=== PATIENT | male | born 1940 | race Caucasian/White ===

== ENCOUNTER 2021-07-01 10:54 | Emergency (ER) | payer BC ==
[2021-07-01] MEDS ORDERED: methylPREDNISolone Sod Succ/PF 125 MG/2 ML VIAL ONE ×2 (11:42→11:59)
[2021-07-01 11:48] LABS: Actual Bicarbonate (HCO3v) 22 mEq/L (22-28); Base Excess -2.6 mEq/L (-2.0 to +3.0); Calcium, Ionized (venous) 1.13 mmol/L (1.16-1.32); Chloride (VBG) 103 mmol/L (98-106); Potassium (VBG) 4.41 mmol/L (3.70-5.30); Puncture Site Other Site; Sodium 137.3 mmol/L (133-146); pH (venous) 7.38 (7.32-7.43)
[2021-07-01 11:53] LABS: #Basophils 0.1 10x3/uL (0.0-0.2); #Monocytes 0.9 10x3/uL (0.0-1.1); #Neutrophils 8.3 10x3/uL (1.5-8.4); %Basophils 0.5 % (0.0-2.0); %Eosinophils 0.3 % (0.0-6.0); %Lymphocytes 8.9 % (18.0-47.0); %Monocytes 8.9 % (0.0-10.0); %Neutrophils 81.1 % (40.0-75.0); Hemoglobin 16.9 g/dL (13.5-17.5); Mean Corpuscular HGB CONC 31.9 g/dL (32.0-36.0); Mean Corpuscular Hemoglobin 29.6 pg (27.0-33.0); Mean Corpuscular Volume 92.6 fl (81.2-95.1); Mean Platelet Volume 9.8 fl (7.4-10.4); Platelet Count 211 10x3/uL (150-450); RBC Distribution Width 15.7 % (11.5-14.5); Red Blood Cell (RBC) Count 5.71 10x6/uL (4.32-5.72); White Blood Cell (WBC) Count 10.3 10x3/uL (3.5-10.5)
[2021-07-01 12:08] LABS: ALT (SGPT) 29 U/L (8-55); AST (SGOT) 100 U/L (5-34); Alkaline Phosphatase 91 U/L (40-110); Anion Gap 19 mmol/L (10-20); BUN (Urea Nitrogen) 23 mg/dL (8.4-25.7); Bilirubin, Total 1.2 mg/dL (0.2-1.2); Calc. Creatinine Clearance 0 mL/min (70-130); Calcium 9.6 mg/dL (7.8-10.44); Carbon Dioxide 22 mmol/L (23-31); Chloride 105 mmol/L (98-107); Globulin 2.8 g/dL (2.4-3.5); Glucose 95 mg/dL (83-110); Potassium 4.5 mmol/L (3.5-5.1); Protein, Total 6.8 g/dL (5.8-8.1); Sodium 141 mmol/L (136-145)
[2021-07-01 12:38] LABS: Bilirubin Neg (Negative); Blood, Urine Negative (Negative); Clarity Clear (Clear); Glucose, Urine (Dipstick) Normal (Negative); Ketone, Urine 15 mg/dL (Negative); Leukocyte Negative (Negative); Nitrite Positive (Negative); Protein, Urine (Dipstick) 15 mg/dl (Neg-Trace); Specific Gravity, Urine 1.015 (1.002-1.036); Urobilinogen Normal mg/dL (Less than 2)
[2021-07-01 12:48] LABS: Bacteria/HPF 1+ HPF (None Seen); Mucous/LPF 2+ LPF (<2+); RBC/HPF 0-3 HPF (0-3); Squamous Epithelial 0-3 HPF (0-3); WBC/HPF 0-3 HPF (0-3)
== END 2021-07-01 13:35 | disposition home or self-care (01) ==
LOC: CSHERS 10:54
DX: J44.1 Chronic obstructive pulmonary disease with (acute) exacerbation (principal); N39.0 Urinary tract infection, site not specified
CPT/HCPCS: 36415; 51702; 71045; 80053; 81003; 81015; 82805; 83880; 84484; 85025; 93005; 94640; 94760; 96374; J2930; J7620

== ENCOUNTER 2021-09-01 07:24 | Emergency (ER) | payer BC ==
[2021-09-01 08:15] LABS: #Basophils 0.1 10x3/uL (0.0-0.2); #Monocytes 0.8 10x3/uL (0.0-1.1); #Neutrophils 11.5 10x3/uL (1.5-8.4); %Basophils 0.4 % (0.0-2.0); %Eosinophils 0.3 % (0.0-6.0); %Lymphocytes 6.6 % (18.0-47.0); %Monocytes 5.9 % (0.0-10.0); %Neutrophils 86.4 % (40.0-75.0); Hemoglobin 15.8 g/dL (13.5-17.5); Mean Corpuscular HGB CONC 33.1 g/dL (32.0-36.0); Mean Corpuscular Hemoglobin 29.4 pg (27.0-33.0); Mean Corpuscular Volume 88.8 fl (81.2-95.1); Mean Platelet Volume 9.9 fl (7.4-10.4); Platelet Count 202 10x3/uL (150-450); RBC Distribution Width 16.6 % (11.5-14.5); Red Blood Cell (RBC) Count 5.38 10x6/uL (4.32-5.72); White Blood Cell (WBC) Count 13.3 10x3/uL (3.5-10.5)
[2021-09-01 08:29] LABS: ALT (SGPT) 11 U/L (8-55); AST (SGOT) 18 U/L (5-34); Alkaline Phosphatase 74 U/L (40-110); Anion Gap 16 mmol/L (10-20); BUN (Urea Nitrogen) 17 mg/dL (8.4-25.7); Bilirubin, Total 0.8 mg/dL (0.2-1.2); Calc. Creatinine Clearance 0 mL/min (70-130); Calcium 9.3 mg/dL (7.8-10.44); Carbon Dioxide 25 mmol/L (23-31); Chloride 106 mmol/L (98-107); Globulin 2.9 g/dL (2.4-3.5); Glucose 112 mg/dL (83-110); Protein, Total 6.9 g/dL (5.8-8.1); Sodium 143 mmol/L (136-145)
[2021-09-01 08:58] LABS: Bilirubin Neg (Negative); Blood, Urine 250 (Negative); Clarity Cloudy (Clear); Glucose, Urine (Dipstick) Normal (Negative); Ketone, Urine 5 mg/dL (Negative); Leukocyte 500 (Negative); Nitrite Negative (Negative); Protein, Urine (Dipstick) 100 mg/dl (Neg-Trace); Urobilinogen Normal mg/dL (Less than 2)
[2021-09-01 09:13] LABS: Bacteria/HPF 3+ HPF (None Seen); Squamous Epithelial 0-3 HPF (0-3); WBC/HPF Greater Than 50 HPF (0-3)
== END 2021-09-01 10:16 | disposition home or self-care (01) ==
LOC: CSHERS 07:24
DX: R33.9 Retention of urine, unspecified (principal); R31.9 Hematuria, unspecified; J44.9 Chronic obstructive pulmonary disease, unspecified; G47.30 Sleep apnea, unspecified
CPT/HCPCS: 51702; 80053; 81003; 81015; 85025; 87077; 87086; 87186

== ENCOUNTER 2023-04-28 15:23 | Inpatient (IN) | payer MEDICARE, BC ==
[2023-04-28] MEDS ORDERED: methylPREDNISolone Sod Succ/PF 125 MG/2 ML VIAL ONE (15:50)
[2023-04-28] MEDS ORDERED: Ipratropium/Albuterol 3 ML NEB ONE (16:19)
[2023-04-28 16:24] LABS: ALT (SGPT) 18 U/L (8-55); AST (SGOT) 27 U/L (5-34); Albumin 3.8 g/dL (3.4-4.8); Alkaline Phosphatase 69 U/L (40-110); Anion Gap 14 mmol/L (10-20); BUN (Urea Nitrogen) 36 mg/dL (8.4-25.7); Bilirubin, Total 0.8 mg/dL (0.2-1.2); Calc. Creatinine Clearance 0 mL/min (70-130); Calcium 8.8 mg/dL (7.8-10.44); Carbon Dioxide 35 mmol/L (23-31); Chloride 102 mmol/L (98-107); Estimated GFR 85; Globulin 2.6 g/dL (2.4-3.5); Glucose 100 mg/dL (83-110); Potassium 4.6 mmol/L (3.5-5.1); Protein, Total 6.4 g/dL (5.8-8.1); Sodium 146 mmol/L (136-145)
[2023-04-28 16:30] LABS: Troponin I 0.048 ng/mL (< 0.028)
[2023-04-28 16:41] LABS: Influenza A by NAA Not Detected (NotDetected); Influenza B by NAA Not Detected (NotDetected); SARS-CoV-2 NAA Rapid Test Not Detected (NotDetected)
[2023-04-28] MEDS ORDERED: Albuterol 2.5 MG (0.5 mL) NEB ONE (17:20)
[2023-04-28 17:37] LABS: #Monocytes 0.5 10x3/uL (0.0-1.1); #Neutrophils 7.8 10x3/uL (1.5-8.4); %Basophils 0.2 % (0.0-2.0); %Eosinophils 0.1 % (0.0-6.0); %Lymphocytes 6.9 % (18.0-47.0); %Monocytes 5.6 % (0.0-10.0); %Neutrophils 86.9 % (40.0-75.0); Hematocrit 50.8 % (38.8-50.0); Hemoglobin 15.3 g/dL (13.5-17.5); Mean Corpuscular HGB CONC 30.1 g/dL (32.0-36.0); Mean Corpuscular Hemoglobin 29.7 pg (27.0-33.0); Mean Corpuscular Volume 98.4 fl (81.2-95.1); Mean Platelet Volume 10.7 fl (7.4-10.4); Platelet Count 141 10x3/uL (150-450); RBC Distribution Width 16.1 % (11.5-14.5); Red Blood Cell (RBC) Count 5.16 10x6/uL (4.32-5.72)
[2023-04-28] MEDS ORDERED: Acetaminophen 650 MG Suppository PR PRN (18:05)
[2023-04-28] MEDS ORDERED: Ondansetron ODT 4 MG TAB PO PRN (18:05)
[2023-04-28] MEDS ORDERED: Ondansetron PF 4 MG/2 ML Vial IVP PRN (18:05)
[2023-04-28] MEDS ORDERED: Albuterol 2.5 MG (3 mL) NEB EZPAP PRN (18:09)
[2023-04-28] MEDS: Ipratropium/Albuterol 3 ML NEB NEB SCH (19:46)
[2023-04-28] MEDS: Mometasone/Formoterol 200/5 60 PUFF INH SCH (19:47)
[2023-04-28] MEDS: Sodium Chloride 0.9% 500 ML IV SCH (20:15)
[2023-04-28] MEDS: Rosuvastatin 20 MG TAB PO SCH (20:32)
[2023-04-28] MEDS: Azithromycin 500 MG in Sodium Chloride 0.9% 250 ML 250 ML IVPB SCH (20:32)
[2023-04-28] MEDS: Famotidine 20 MG TAB PO SCH (20:32)
[2023-04-28] MEDS: guaiFENesin ER 600 MG TAB PO SCH (20:32)
[2023-04-28] MEDS: cefTRIAXone\\ROCEPHIN 1 GM in Sodium Chloride 0.9% 100 ML IVPB SCH (20:32)
[2023-04-29] MEDS: methylPREDNISolone Sod Succ 40 MG VIAL IVP SCH (00:22)
[2023-04-29 00:34] LABS: Troponin I 0.046 ng/mL (< 0.028)
[2023-04-29 04:44] LABS: Anion Gap 12 mmol/L (10-20); BUN (Urea Nitrogen) 35 mg/dL (8.4-25.7); Calc. Creatinine Clearance 85 mL/min (70-130); Calcium 8.7 mg/dL (7.8-10.44); Carbon Dioxide 34 mmol/L (23-31); Chloride 104 mmol/L (98-107); Estimated GFR 89; Glucose 131 mg/dL (83-110); Sodium 145 mmol/L (136-145)
[2023-04-29 05:32] LABS: #Monocytes 0.1 10x3/uL (0.0-1.1); #Neutrophils 7.2 10x3/uL (1.5-8.4); %Basophils 0.1 % (0.0-2.0); %Lymphocytes 2.4 % (18.0-47.0); %Monocytes 1.2 % (0.0-10.0); %Neutrophils 95.9 % (40.0-75.0); Hematocrit 48.3 % (38.8-50.0); Hemoglobin 14.7 g/dL (13.5-17.5); Mean Corpuscular HGB CONC 30.4 g/dL (32.0-36.0); Mean Corpuscular Hemoglobin 29.7 pg (27.0-33.0); Mean Corpuscular Volume 97.6 fl (81.2-95.1); Platelet Count 135 10x3/uL (150-450); RBC Distribution Width 16.1 % (11.5-14.5); Red Blood Cell (RBC) Count 4.95 10x6/uL (4.32-5.72); White Blood Cell (WBC) Count 7.5 10x3/uL (3.5-10.5)
[2023-04-29 07:55] LABS: Troponin I 0.039 ng/mL (< 0.028)
[2023-04-29] MEDS: Furosemide 40 MG (4 mL) VIAL SLOW IVP SCH ×2 (09:24→14:30)
[2023-04-29] MEDS: Enoxaparin 40 MG (0.4 mL) SYRINGE SC SCH (09:24)
[2023-04-29] MEDS: dilTIAZem CD 180 MG CAP PO SCH (11:44)
[2023-04-29 12:55] LABS: Magnesium 1.8 mg/dL (1.6-2.6)
[2023-04-30 03:51] LABS: #Monocytes 0.3 10x3/uL (0.0-1.1); #Neutrophils 8.4 10x3/uL (1.5-8.4); %Basophils 0.1 % (0.0-2.0); %Lymphocytes 4.8 % (18.0-47.0); %Monocytes 3.7 % (0.0-10.0); %Neutrophils 90.9 % (40.0-75.0); Hematocrit 46.9 % (38.8-50.0); Hemoglobin 14.6 g/dL (13.5-17.5); Mean Corpuscular HGB CONC 31.1 g/dL (32.0-36.0); Mean Corpuscular Hemoglobin 29.6 pg (27.0-33.0); Mean Corpuscular Volume 94.9 fl (81.2-95.1); Mean Platelet Volume 11.1 fl (7.4-10.4); Platelet Count 140 10x3/uL (150-450); Red Blood Cell (RBC) Count 4.94 10x6/uL (4.32-5.72); White Blood Cell (WBC) Count 9.2 10x3/uL (3.5-10.5)
[2023-04-30 03:54] LABS: Anion Gap 14 mmol/L (10-20); BUN (Urea Nitrogen) 45 mg/dL (8.4-25.7); Calc. Creatinine Clearance 71 mL/min (70-130); Calcium 8.9 mg/dL (7.8-10.44); Carbon Dioxide 35 mmol/L (23-31); Chloride 99 mmol/L (98-107); Estimated GFR 79; Glucose 108 mg/dL (83-110); Potassium 4.8 mmol/L (3.5-5.1); Sodium 143 mmol/L (136-145)
[2023-04-30] MEDS: Budesonide 0.5 MG/2 ML NEB INH SCH (06:45)
[2023-04-30] MEDS: dilTIAZem CD 180 MG CAP PO SCH (08:50)
[2023-05-01] MEDS: Metoprolol Tartrate 5 MG (5 mL) VIAL IVP PRN (08:38)
[2023-05-01] MEDS: Magnesium 2 GM/50 ML(in water) 2 GM in Premix 1 BAG IVPB SCH (10:26)
[2023-05-01] MEDS: Azithromycin 500 MG in Sodium Chloride 0.9% 250 ML 250 ML IVPB SCH (20:58)
[2023-05-02 04:27] LABS: BUN (Urea Nitrogen) 64 mg/dL (8.4-25.7); Calc. Creatinine Clearance 70 mL/min (70-130); Calcium 8.9 mg/dL (7.8-10.44); Estimated GFR 79; Glucose 127 mg/dL (83-110); Magnesium 2.1 mg/dL (1.6-2.6)
[2023-05-02 04:40] LABS: Anion Gap 17 mmol/L (10-20); Carbon Dioxide 36 mmol/L (23-31); Chloride 97 mmol/L (98-107); Potassium 4.7 mmol/L (3.5-5.1); Sodium 145 mmol/L (136-145)
[2023-05-02] MEDS: Metoprolol Tartrate 25 MG TAB PO SCH ×2 (13:21→20:36)
[2023-05-02] MEDS: methylPREDNISolone Sod Succ 40 MG VIAL IVP SCH (13:21)
[2023-05-04 03:47] LABS: #Monocytes 0.5 10x3/uL (0.0-1.1); #Neutrophils 9.9 10x3/uL (1.5-8.4); %Basophils 0.1 % (0.0-2.0); %Lymphocytes 2.4 % (18.0-47.0); %Monocytes 4.7 % (0.0-10.0); %Neutrophils 92.4 % (40.0-75.0); Hematocrit 57.2 % (38.8-50.0); Hemoglobin 17.4 g/dL (13.5-17.5); Mean Corpuscular HGB CONC 30.4 g/dL (32.0-36.0); Mean Corpuscular Hemoglobin 29.5 pg (27.0-33.0); Mean Corpuscular Volume 97.1 fl (81.2-95.1); Platelet Count 76 10x3/uL (150-450); RBC Distribution Width 15.9 % (11.5-14.5); Red Blood Cell (RBC) Count 5.89 10x6/uL (4.32-5.72); White Blood Cell (WBC) Count 10.7 10x3/uL (3.5-10.5)
[2023-05-04 04:05] LABS: Platelet Adequacy Comment Appears Decreased; RBC Morph Comment Within Normal Limits
[2023-05-04 04:29] LABS: BUN (Urea Nitrogen) 55 mg/dL (8.4-25.7); Calc. Creatinine Clearance 81 mL/min (70-130); Calcium 8.9 mg/dL (7.8-10.44); Estimated GFR 87; Glucose 116 mg/dL (83-110)
[2023-05-04 04:37] LABS: Anion Gap 17 mmol/L (10-20); Carbon Dioxide 33 mmol/L (23-31); Chloride 96 mmol/L (98-107); Potassium 4.3 mmol/L (3.5-5.1); Sodium 142 mmol/L (136-145)
[2023-05-04] MEDS: Apixaban 5 MG TAB PO SCH (20:28)
[2023-05-05 03:12] LABS: Hematocrit 52.5 % (38.8-50.0); Hemoglobin 16.2 g/dL (13.5-17.5); Mean Corpuscular HGB CONC 30.9 g/dL (32.0-36.0); Mean Corpuscular Hemoglobin 29.6 pg (27.0-33.0); Mean Corpuscular Volume 95.8 fl (81.2-95.1); Mean Platelet Volume 11.9 fl (7.4-10.4); Platelet Count 71 10x3/uL (150-450); RBC Distribution Width 15.4 % (11.5-14.5); Red Blood Cell (RBC) Count 5.48 10x6/uL (4.32-5.72); White Blood Cell (WBC) Count 12.4 10x3/uL (3.5-10.5)
[2023-05-05 03:13] LABS: MDiff Complete? YES
[2023-05-05 03:35] LABS: Band 9 % (5-11); Lymphocytes 4 % (21-51); Monocytes 5 % (0-10); Neutrophil 82 % (42-75)
[2023-05-05 03:38] LABS: RBC Morph Comment Within Normal Limits
[2023-05-05 03:39] LABS: Platelet Adequacy Comment Appears Decreased
[2023-05-05 03:42] LABS: Anion Gap 13 mmol/L (10-20); BUN (Urea Nitrogen) 52 mg/dL (8.4-25.7); Calc. Creatinine Clearance 86 mL/min (70-130); Calcium 8.6 mg/dL (7.8-10.44); Carbon Dioxide 36 mmol/L (23-31); Chloride 99 mmol/L (98-107); Estimated GFR 89; Glucose 131 mg/dL (83-110); Potassium 4.6 mmol/L (3.5-5.1); Sodium 143 mmol/L (136-145)
[2023-05-05] MEDS: methylPREDNISolone Sod Succ 40 MG VIAL IVP SCH (13:27)
[2023-05-05] MEDS: Apixaban 2.5 MG TAB PO SCH (20:50)
[2023-05-06 03:17] LABS: #Monocytes 0.8 10x3/uL (0.0-1.1); #Neutrophils 13.7 10x3/uL (1.5-8.4); %Basophils 0.2 % (0.0-2.0); %Lymphocytes 2.7 % (18.0-47.0); %Monocytes 5.1 % (0.0-10.0); %Neutrophils 91.7 % (40.0-75.0); Hematocrit 55.2 % (38.8-50.0); Hemoglobin 16.8 g/dL (13.5-17.5); Mean Corpuscular HGB CONC 30.4 g/dL (32.0-36.0); Mean Corpuscular Hemoglobin 29.9 pg (27.0-33.0); Mean Corpuscular Volume 98.4 fl (81.2-95.1); Platelet Count 74 10x3/uL (150-450); RBC Distribution Width 15.3 % (11.5-14.5); Red Blood Cell (RBC) Count 5.61 10x6/uL (4.32-5.72)
[2023-05-06 03:18] LABS: Mean Platelet Volume 11.4 fl (7.4-10.4)
[2023-05-06 03:22] LABS: INR-International Normal Ratio 1.2; PTT 26.8 sec (22.0-33.0); Prothrombin Time 12.9 sec (9.5-12.1)
[2023-05-06 03:44] LABS: ALT (SGPT) 172 U/L (8-55); AST (SGOT) 59 U/L (5-34); Albumin 3.6 g/dL (3.4-4.8); Alkaline Phosphatase 52 U/L (40-110); BUN (Urea Nitrogen) 54 mg/dL (8.4-25.7); Bilirubin, Direct 0.4 mg/dL (0.1-0.3); Bilirubin, Total 0.8 mg/dL (0.2-1.2); Calc. Creatinine Clearance 66 mL/min (70-130); Calcium 8.9 mg/dL (7.8-10.44); Estimated GFR 72; Glucose 119 mg/dL (83-110); Protein, Total 5.8 g/dL (5.8-8.1)
[2023-05-06 03:51] LABS: Anion Gap 14 mmol/L (10-20); Carbon Dioxide 36 mmol/L (23-31); Chloride 99 mmol/L (98-107); Potassium 5.2 mmol/L (3.5-5.1); Sodium 144 mmol/L (136-145)
[2023-05-06] MEDS: Folic Acid 1 MG TAB PO SCH (10:05)
[2023-05-06 12:31] LABS: Potassium 4.4 mmol/L (3.5-5.1)
[2023-05-06] MEDS ORDERED: Diclofenac 1% 100 GM Topical GEL TP SCH (17:00)
[2023-05-06] MEDS: Diclofenac 1% 50 GM TOPICAL GEL TP SCH ×2 (18:52→21:31)
[2023-05-06] MEDS: Metoprolol Tartrate 25 MG TAB PO SCH (21:30)
[2023-05-07 03:00] LABS: #Monocytes 0.9 10x3/uL (0.0-1.1); #Neutrophils 16.5 10x3/uL (1.5-8.4); %Basophils 0.1 % (0.0-2.0); %Lymphocytes 2.2 % (18.0-47.0); %Monocytes 5.1 % (0.0-10.0); %Neutrophils 91.9 % (40.0-75.0); Hematocrit 53.8 % (38.8-50.0); Hemoglobin 16.4 g/dL (13.5-17.5); Mean Corpuscular HGB CONC 30.5 g/dL (32.0-36.0); Mean Corpuscular Hemoglobin 29.8 pg (27.0-33.0); Mean Corpuscular Volume 97.8 fl (81.2-95.1); Mean Platelet Volume 11.6 fl (7.4-10.4); Platelet Count 77 10x3/uL (150-450); RBC Distribution Width 15.2 % (11.5-14.5); White Blood Cell (WBC) Count 17.9 10x3/uL (3.5-10.5)
[2023-05-07 03:12] LABS: Anion Gap 14 mmol/L (10-20); BUN (Urea Nitrogen) 53 mg/dL (8.4-25.7); Calc. Creatinine Clearance 85 mL/min (70-130); Calcium 8.9 mg/dL (7.8-10.44); Carbon Dioxide 37 mmol/L (23-31); Chloride 99 mmol/L (98-107); Estimated GFR 88; Glucose 140 mg/dL (83-110); Potassium 5.5 mmol/L (3.5-5.1); Sodium 144 mmol/L (136-145)
[2023-05-07 03:33] LABS: ALT (SGPT) 180 U/L (8-55); AST (SGOT) 60 U/L (5-34); Albumin 3.5 g/dL (3.4-4.8); Alkaline Phosphatase 55 U/L (40-110); Bilirubin, Direct 0.3 mg/dL (0.1-0.3); Bilirubin, Total 0.8 mg/dL (0.2-1.2); Protein, Total 5.6 g/dL (5.8-8.1)
[2023-05-07] MEDS: predniSONE 20 MG TAB PO SCH (09:09)
[2023-05-07] MEDS: Acetaminophen 325 MG TAB PO PRN (11:24)
[2023-05-07 13:08] LABS: Potassium 4.6 mmol/L (3.5-5.1)
[2023-05-07] MEDS: Rosuvastatin 10 MG TAB PO SCH (20:39)
[2023-05-08 04:03] LABS: #Monocytes 2.1 10x3/uL (0.0-1.1); #Neutrophils 17.6 10x3/uL (1.5-8.4); %Basophils 0.2 % (0.0-2.0); %Lymphocytes 2.5 % (18.0-47.0); %Monocytes 10.4 % (0.0-10.0); %Neutrophils 86.4 % (40.0-75.0); Hematocrit 53.5 % (38.8-50.0); Hemoglobin 16.1 g/dL (13.5-17.5); Mean Corpuscular HGB CONC 30.1 g/dL (32.0-36.0); Mean Corpuscular Hemoglobin 29.5 pg (27.0-33.0); Mean Corpuscular Volume 98.2 fl (81.2-95.1); Platelet Count 84 10x3/uL (150-450); RBC Distribution Width 15.1 % (11.5-14.5); Red Blood Cell (RBC) Count 5.45 10x6/uL (4.32-5.72); White Blood Cell (WBC) Count 20.3 10x3/uL (3.5-10.5)
[2023-05-08 04:13] LABS: Anion Gap 13 mmol/L (10-20); BUN (Urea Nitrogen) 57 mg/dL (8.4-25.7); Calc. Creatinine Clearance 80 mL/min (70-130); Carbon Dioxide 37 mmol/L (23-31); Chloride 99 mmol/L (98-107); Potassium 5.4 mmol/L (3.5-5.1); Sodium 144 mmol/L (136-145)
[2023-05-08 04:14] LABS: ALT (SGPT) 194 U/L (8-55); AST (SGOT) 59 U/L (5-34); Albumin 3.4 g/dL (3.4-4.8); Alkaline Phosphatase 53 U/L (40-110); Bilirubin, Direct 0.3 mg/dL (0.1-0.3); Bilirubin, Total 0.8 mg/dL (0.2-1.2); Calcium 8.9 mg/dL (7.8-10.44); Estimated GFR 86; Glucose 96 mg/dL (83-110); Protein, Total 5.6 g/dL (5.8-8.1)
[2023-05-08 04:46] LABS: Platelet Adequacy Comment Appears Decreased
[2023-05-08 04:50] LABS: RBC Morph Comment Within Normal Limits
[2023-05-08 12:44] LABS: Potassium 4.3 mmol/L (3.5-5.1)
[2023-05-09 09:43] LABS: #Eosinphils 0.1 10x3/uL (0.0-0.5); #Monocytes 1.8 10x3/uL (0.0-1.1); #Neutrophils 14.7 10x3/uL (1.5-8.4); %Basophils 0.1 % (0.0-2.0); %Eosinophils 0.3 % (0.0-6.0); %Neutrophils 84.2 % (40.0-75.0); Hematocrit 44.7 % (38.8-50.0); Hemoglobin 13.6 g/dL (13.5-17.5); Mean Corpuscular HGB CONC 30.4 g/dL (32.0-36.0); Mean Corpuscular Hemoglobin 29.8 pg (27.0-33.0); Mean Corpuscular Volume 97.8 fl (81.2-95.1); Mean Platelet Volume 12.4 fl (7.4-10.4); Platelet Count 86 10x3/uL (150-450); Red Blood Cell (RBC) Count 4.57 10x6/uL (4.32-5.72); White Blood Cell (WBC) Count 17.5 10x3/uL (3.5-10.5)
[2023-05-09 10:10] LABS: ALT (SGPT) 157 U/L (8-55); AST (SGOT) 50 U/L (5-34); Albumin 3.1 g/dL (3.4-4.8); Alkaline Phosphatase 47 U/L (40-110); BUN (Urea Nitrogen) 56 mg/dL (8.4-25.7); Calc. Creatinine Clearance 79 mL/min (70-130); Calcium 8.8 mg/dL (7.8-10.44); Estimated GFR 86; Globulin 1.7 g/dL (2.4-3.5); Glucose 95 mg/dL (83-110); Protein, Total 4.8 g/dL (5.8-8.1)
[2023-05-09 10:18] LABS: Anion Gap 14 mmol/L (10-20); Carbon Dioxide 36 mmol/L (23-31); Chloride 98 mmol/L (98-107); Potassium 5.3 mmol/L (3.5-5.1); Sodium 143 mmol/L (136-145)
[2023-05-09] MEDS: LOKELMA 5 GM PACKET PO SCH (11:43)
[2023-05-10 04:12] LABS: #Monocytes 1.6 10x3/uL (0.0-1.1); #Neutrophils 16.7 10x3/uL (1.5-8.4); %Basophils 0.1 % (0.0-2.0); %Eosinophils 0.2 % (0.0-6.0); %Lymphocytes 3.8 % (18.0-47.0); %Monocytes 8.1 % (0.0-10.0); %Neutrophils 87.2 % (40.0-75.0); Hematocrit 43.1 % (38.8-50.0); Mean Corpuscular HGB CONC 30.2 g/dL (32.0-36.0); Mean Corpuscular Hemoglobin 29.3 pg (27.0-33.0); Mean Corpuscular Volume 97.3 fl (81.2-95.1); Mean Platelet Volume 11.9 fl (7.4-10.4); Platelet Count 82 10x3/uL (150-450); RBC Distribution Width 14.9 % (11.5-14.5); Red Blood Cell (RBC) Count 4.43 10x6/uL (4.32-5.72); White Blood Cell (WBC) Count 19.2 10x3/uL (3.5-10.5)
[2023-05-10 04:32] LABS: Platelet Adequacy Comment Appears Decreased; RBC Morph Comment Within Normal Limits
[2023-05-10 09:31] LABS: #Monocytes 1.3 10x3/uL (0.0-1.1); %Basophils 0.1 % (0.0-2.0); %Eosinophils 0.2 % (0.0-6.0); %Lymphocytes 6.2 % (18.0-47.0); %Monocytes 7.4 % (0.0-10.0); %Neutrophils 85.6 % (40.0-75.0); Hematocrit 42.5 % (38.8-50.0); Hemoglobin 12.9 g/dL (13.5-17.5); Mean Corpuscular HGB CONC 30.4 g/dL (32.0-36.0); Mean Corpuscular Hemoglobin 29.6 pg (27.0-33.0); Mean Corpuscular Volume 97.5 fl (81.2-95.1); Platelet Count 95 10x3/uL (150-450); RBC Distribution Width 14.8 % (11.5-14.5); Red Blood Cell (RBC) Count 4.36 10x6/uL (4.32-5.72); White Blood Cell (WBC) Count 17.6 10x3/uL (3.5-10.5)
[2023-05-10 09:44] LABS: ALT (SGPT) 127 U/L (8-55); AST (SGOT) 36 U/L (5-34); Albumin 3.2 g/dL (3.4-4.8); Alkaline Phosphatase 50 U/L (40-110); Anion Gap 14 mmol/L (10-20); BUN (Urea Nitrogen) 56 mg/dL (8.4-25.7); Calc. Creatinine Clearance 80 mL/min (70-130); Calcium 8.7 mg/dL (7.8-10.44); Carbon Dioxide 37 mmol/L (23-31); Chloride 98 mmol/L (98-107); Estimated GFR 85; Globulin 2.1 g/dL (2.4-3.5); Glucose 78 mg/dL (83-110); Protein, Total 5.3 g/dL (5.8-8.1); Sodium 144 mmol/L (136-145)
[2023-05-11 04:24] LABS: #Monocytes 1.2 10x3/uL (0.0-1.1); #Neutrophils 14.1 10x3/uL (1.5-8.4); %Basophils 0.1 % (0.0-2.0); %Eosinophils 0.1 % (0.0-6.0); %Lymphocytes 4.5 % (18.0-47.0); %Monocytes 7.4 % (0.0-10.0); %Neutrophils 87.3 % (40.0-75.0); Hematocrit 36.4 % (38.8-50.0); Hemoglobin 11.2 g/dL (13.5-17.5); Mean Corpuscular HGB CONC 30.8 g/dL (32.0-36.0); Mean Corpuscular Hemoglobin 29.6 pg (27.0-33.0); Mean Platelet Volume 12.1 fl (7.4-10.4); Platelet Count 94 10x3/uL (150-450); RBC Distribution Width 14.9 % (11.5-14.5); Red Blood Cell (RBC) Count 3.79 10x6/uL (4.32-5.72); White Blood Cell (WBC) Count 16.1 10x3/uL (3.5-10.5)
[2023-05-11 04:57] LABS: Platelet Adequacy Comment Appears Decreased; RBC Morph Comment Within Normal Limits
[2023-05-11] MEDS: Furosemide 40 MG (4 mL) VIAL SLOW IVP SCH ×2 (09:10→13:57)
[2023-05-11 09:19] LABS: #Monocytes 1.3 10x3/uL (0.0-1.1); #Neutrophils 14.8 10x3/uL (1.5-8.4); %Basophils 0.1 % (0.0-2.0); %Eosinophils 0.2 % (0.0-6.0); %Lymphocytes 6.4 % (18.0-47.0); %Monocytes 7.7 % (0.0-10.0); %Neutrophils 85.1 % (40.0-75.0); Hematocrit 37.3 % (38.8-50.0); Hemoglobin 11.5 g/dL (13.5-17.5); Mean Corpuscular HGB CONC 30.8 g/dL (32.0-36.0); Mean Corpuscular Hemoglobin 29.7 pg (27.0-33.0); Mean Corpuscular Volume 96.4 fl (81.2-95.1); Platelet Count 101 10x3/uL (150-450); RBC Distribution Width 14.8 % (11.5-14.5); Red Blood Cell (RBC) Count 3.87 10x6/uL (4.32-5.72); White Blood Cell (WBC) Count 17.4 10x3/uL (3.5-10.5)
[2023-05-11] MEDS: dilTIAZem ER 60 MG CAP PO SCH (09:27)
[2023-05-11 09:29] LABS: ALT (SGPT) 99 U/L (8-55); AST (SGOT) 32 U/L (5-34); Albumin 3.2 g/dL (3.4-4.8); Alkaline Phosphatase 45 U/L (40-110); Anion Gap 13 mmol/L (10-20); BUN (Urea Nitrogen) 49 mg/dL (8.4-25.7); Bilirubin, Total 1.3 mg/dL (0.2-1.2); Calc. Creatinine Clearance 94 mL/min (70-130); Calcium 8.5 mg/dL (7.8-10.44); Carbon Dioxide 36 mmol/L (23-31); Chloride 98 mmol/L (98-107); Estimated GFR 90; Glucose 95 mg/dL (83-110); Potassium 4.8 mmol/L (3.5-5.1); Protein, Total 5.2 g/dL (5.8-8.1); Sodium 142 mmol/L (136-145)
[2023-05-11] MEDS: Ipratropium Bromide 2.5 ml Neb NEB SCH (13:42)
[2023-05-12 03:41] LABS: #Monocytes 1.4 10x3/uL (0.0-1.1); #Neutrophils 14.9 10x3/uL (1.5-8.4); %Basophils 0.1 % (0.0-2.0); %Eosinophils 0.1 % (0.0-6.0); %Lymphocytes 5.2 % (18.0-47.0); %Monocytes 8.3 % (0.0-10.0); %Neutrophils 85.7 % (40.0-75.0); Hematocrit 33.7 % (38.8-50.0); Hemoglobin 10.6 g/dL (13.5-17.5); Mean Corpuscular HGB CONC 31.5 g/dL (32.0-36.0); Mean Corpuscular Hemoglobin 29.9 pg (27.0-33.0); Mean Corpuscular Volume 94.9 fl (81.2-95.1); Mean Platelet Volume 12.1 fl (7.4-10.4); Platelet Count 95 10x3/uL (150-450); RBC Distribution Width 14.9 % (11.5-14.5); Red Blood Cell (RBC) Count 3.55 10x6/uL (4.32-5.72); White Blood Cell (WBC) Count 17.3 10x3/uL (3.5-10.5)
[2023-05-12 09:15] LABS: #Monocytes 1.5 10x3/uL (0.0-1.1); #Neutrophils 14.9 10x3/uL (1.5-8.4); %Basophils 0.1 % (0.0-2.0); %Eosinophils 0.2 % (0.0-6.0); %Monocytes 8.4 % (0.0-10.0); %Neutrophils 84.8 % (40.0-75.0); Hematocrit 33.2 % (38.8-50.0); Hemoglobin 10.6 g/dL (13.5-17.5); Mean Corpuscular HGB CONC 31.9 g/dL (32.0-36.0); Mean Corpuscular Hemoglobin 30.4 pg (27.0-33.0); Mean Corpuscular Volume 95.1 fl (81.2-95.1); Mean Platelet Volume 11.7 fl (7.4-10.4); Platelet Count 116 10x3/uL (150-450); RBC Distribution Width 14.9 % (11.5-14.5); Red Blood Cell (RBC) Count 3.49 10x6/uL (4.32-5.72); White Blood Cell (WBC) Count 17.5 10x3/uL (3.5-10.5)
[2023-05-12 09:33] LABS: ALT (SGPT) 78 U/L (8-55); AST (SGOT) 29 U/L (5-34); Albumin 3.1 g/dL (3.4-4.8); Alkaline Phosphatase 48 U/L (40-110); BUN (Urea Nitrogen) 54 mg/dL (8.4-25.7); Bilirubin, Total 1.5 mg/dL (0.2-1.2); Calc. Creatinine Clearance 83 mL/min (70-130); Calcium 8.5 mg/dL (7.8-10.44); Estimated GFR 86; Globulin 1.9 g/dL (2.4-3.5); Glucose 100 mg/dL (83-110)
[2023-05-12 09:42] LABS: Anion Gap 17 mmol/L (10-20); Carbon Dioxide 34 mmol/L (23-31); Chloride 95 mmol/L (98-107); Potassium 4.7 mmol/L (3.5-5.1); Sodium 141 mmol/L (136-145)
[2023-05-12] MEDS: dilTIAZem CD 240 MG CAP PO SCH (10:12)
[2023-05-13 04:34] LABS: #Monocytes 1.4 10x3/uL (0.0-1.1); #Neutrophils 14.4 10x3/uL (1.5-8.4); %Basophils 0.1 % (0.0-2.0); %Eosinophils 0.1 % (0.0-6.0); %Lymphocytes 4.8 % (18.0-47.0); %Monocytes 8.4 % (0.0-10.0); Hematocrit 31.8 % (38.8-50.0); Hemoglobin 9.9 g/dL (13.5-17.5); Mean Corpuscular HGB CONC 31.1 g/dL (32.0-36.0); Mean Corpuscular Hemoglobin 29.7 pg (27.0-33.0); Mean Corpuscular Volume 95.5 fl (81.2-95.1); Mean Platelet Volume 12.7 fl (7.4-10.4); Platelet Count 100 10x3/uL (150-450); RBC Distribution Width 15.1 % (11.5-14.5); Red Blood Cell (RBC) Count 3.33 10x6/uL (4.32-5.72); White Blood Cell (WBC) Count 16.7 10x3/uL (3.5-10.5)
[2023-05-13 09:11] LABS: #Monocytes 1.3 10x3/uL (0.0-1.1); #Neutrophils 14.7 10x3/uL (1.5-8.4); %Basophils 0.1 % (0.0-2.0); %Eosinophils 0.1 % (0.0-6.0); %Lymphocytes 6.5 % (18.0-47.0); %Monocytes 7.5 % (0.0-10.0); %Neutrophils 85.1 % (40.0-75.0); Hematocrit 33.4 % (38.8-50.0); Hemoglobin 10.7 g/dL (13.5-17.5); Mean Corpuscular Hemoglobin 30.1 pg (27.0-33.0); Mean Corpuscular Volume 94.1 fl (81.2-95.1); Mean Platelet Volume 12.2 fl (7.4-10.4); Platelet Count 134 10x3/uL (150-450); RBC Distribution Width 14.9 % (11.5-14.5); Red Blood Cell (RBC) Count 3.55 10x6/uL (4.32-5.72); White Blood Cell (WBC) Count 17.3 10x3/uL (3.5-10.5)
[2023-05-13 09:42] LABS: ALT (SGPT) 76 U/L (8-55); AST (SGOT) 32 U/L (5-34); Albumin 3.5 g/dL (3.4-4.8); Alkaline Phosphatase 55 U/L (40-110); BUN (Urea Nitrogen) 57 mg/dL (8.4-25.7); Bilirubin, Total 1.7 mg/dL (0.2-1.2); Calc. Creatinine Clearance 72 mL/min (70-130); Calcium 8.9 mg/dL (7.8-10.44); Estimated GFR 77; Globulin 2.2 g/dL (2.4-3.5); Glucose 115 mg/dL (83-110); Protein, Total 5.7 g/dL (5.8-8.1)
[2023-05-13 09:50] LABS: Anion Gap 17 mmol/L (10-20); Carbon Dioxide 36 mmol/L (23-31); Chloride 94 mmol/L (98-107); Potassium 4.3 mmol/L (3.5-5.1); Sodium 143 mmol/L (136-145)
[2023-05-14 03:58] LABS: Platelet Count 109 10x3/uL (150-450)
[2023-05-14 03:59] LABS: #Monocytes 1.3 10x3/uL (0.0-1.1); #Neutrophils 13.3 10x3/uL (1.5-8.4); %Basophils 0.1 % (0.0-2.0); %Eosinophils 0.1 % (0.0-6.0); %Lymphocytes 4.3 % (18.0-47.0); %Monocytes 8.3 % (0.0-10.0); %Neutrophils 86.7 % (40.0-75.0); Hematocrit 30.3 % (38.8-50.0); Hemoglobin 9.9 g/dL (13.5-17.5); Mean Corpuscular HGB CONC 32.7 g/dL (32.0-36.0); Mean Corpuscular Hemoglobin 30.9 pg (27.0-33.0); Mean Corpuscular Volume 94.7 fl (81.2-95.1); Mean Platelet Volume 11.9 fl (7.4-10.4); RBC Distribution Width 14.8 % (11.5-14.5); White Blood Cell (WBC) Count 15.3 10x3/uL (3.5-10.5)
[2023-05-14 09:40] LABS: #Monocytes 1.1 10x3/uL (0.0-1.1); #Neutrophils 12.6 10x3/uL (1.5-8.4); %Basophils 0.1 % (0.0-2.0); %Eosinophils 0.1 % (0.0-6.0); %Lymphocytes 7.2 % (18.0-47.0); %Monocytes 7.5 % (0.0-10.0); %Neutrophils 84.6 % (40.0-75.0); Hematocrit 30.9 % (38.8-50.0); Mean Corpuscular HGB CONC 32.4 g/dL (32.0-36.0); Mean Corpuscular Hemoglobin 30.6 pg (27.0-33.0); Mean Corpuscular Volume 94.5 fl (81.2-95.1); Mean Platelet Volume 12.1 fl (7.4-10.4); Platelet Count 115 10x3/uL (150-450); RBC Distribution Width 14.9 % (11.5-14.5); Red Blood Cell (RBC) Count 3.27 10x6/uL (4.32-5.72); White Blood Cell (WBC) Count 14.9 10x3/uL (3.5-10.5)
[2023-05-14 10:06] LABS: ALT (SGPT) 62 U/L (8-55); AST (SGOT) 29 U/L (5-34); Albumin 3.3 g/dL (3.4-4.8); Alkaline Phosphatase 48 U/L (40-110); BUN (Urea Nitrogen) 53 mg/dL (8.4-25.7); Bilirubin, Total 1.6 mg/dL (0.2-1.2); Calc. Creatinine Clearance 85 mL/min (70-130); Calcium 8.4 mg/dL (7.8-10.44); Estimated GFR 89; Globulin 1.9 g/dL (2.4-3.5); Glucose 98 mg/dL (83-110); Protein, Total 5.2 g/dL (5.8-8.1)
[2023-05-14 10:13] LABS: Anion Gap 15 mmol/L (10-20); Carbon Dioxide 36 mmol/L (23-31); Chloride 94 mmol/L (98-107); Potassium 4.3 mmol/L (3.5-5.1); Sodium 141 mmol/L (136-145)
[2023-05-15 08:56] LABS: ALV-art Gradient 179.445 mmHg (0-20); Actual Bicarbonate (HCO3a) 37.1 mEq/L (22-28); Analyzer IN Cardio CS ICU; Base Excess (BEa) 9.3 mEq/L (-2.0 to +3.0); CO2 Tension 66.7 mmHg (35.0-45.0); Calcium, Ionized (arterial) 1.13 mmol/L (1.12-1.30); Carboxyhemoglobin (COHb) 1.9 gm% (0.0-3.0); Hematocrit-ABG 38 % (42.0-52.0); Hemoglobin (Hb) 12.9 g/dL (14.0-18.0); O2 Tension (PaO2), arterial 50.9 mmHg (> 60.0); Potassium - ABG Lab 4.19 mmol/L (3.70-5.30); Puncture Site RRA; pH, Arterial 7.363 (7.35-7.45)
[2023-05-15 08:59] LABS: #Monocytes 1.4 10x3/uL (0.0-1.1); #Neutrophils 14.9 10x3/uL (1.5-8.4); %Basophils 0.1 % (0.0-2.0); %Eosinophils 0.2 % (0.0-6.0); %Lymphocytes 5.5 % (18.0-47.0); %Monocytes 8.1 % (0.0-10.0); %Neutrophils 85.6 % (40.0-75.0); Hematocrit 34.1 % (38.8-50.0); Hemoglobin 10.6 g/dL (13.5-17.5); Mean Corpuscular HGB CONC 31.1 g/dL (32.0-36.0); Mean Corpuscular Hemoglobin 29.8 pg (27.0-33.0); Mean Corpuscular Volume 95.8 fl (81.2-95.1); Mean Platelet Volume 11.1 fl (7.4-10.4); Platelet Count 143 10x3/uL (150-450); Red Blood Cell (RBC) Count 3.56 10x6/uL (4.32-5.72); White Blood Cell (WBC) Count 17.4 10x3/uL (3.5-10.5)
[2023-05-15 09:22] LABS: ALT (SGPT) 59 U/L (8-55); AST (SGOT) 31 U/L (5-34); Albumin 3.4 g/dL (3.4-4.8); Alkaline Phosphatase 53 U/L (40-110); BUN (Urea Nitrogen) 48 mg/dL (8.4-25.7); Bilirubin, Total 1.7 mg/dL (0.2-1.2); Calc. Creatinine Clearance 85 mL/min (70-130); Calcium 8.5 mg/dL (7.8-10.44); Estimated GFR 89; Globulin 2.2 g/dL (2.4-3.5); Glucose 93 mg/dL (83-110); Protein, Total 5.6 g/dL (5.8-8.1)
[2023-05-15 09:30] LABS: Anion Gap 17 mmol/L (10-20); Carbon Dioxide 34 mmol/L (23-31); Chloride 96 mmol/L (98-107); Potassium 4.1 mmol/L (3.5-5.1); Sodium 143 mmol/L (136-145)
[2023-05-16 09:38] LABS: Hematocrit 33.8 % (38.8-50.0); Hemoglobin 10.3 g/dL (13.5-17.5); Mean Corpuscular HGB CONC 30.5 g/dL (32.0-36.0); Mean Corpuscular Hemoglobin 29.3 pg (27.0-33.0); Mean Platelet Volume 11.3 fl (7.4-10.4); Platelet Count 134 10x3/uL (150-450); RBC Distribution Width 15.3 % (11.5-14.5); Red Blood Cell (RBC) Count 3.52 10x6/uL (4.32-5.72); White Blood Cell (WBC) Count 17.6 10x3/uL (3.5-10.5)
[2023-05-16 09:39] LABS: #Monocytes 1.3 10x3/uL (0.0-1.1); #Neutrophils 14.6 10x3/uL (1.5-8.4); %Basophils 0.1 % (0.0-2.0); %Eosinophils 0.2 % (0.0-6.0); %Lymphocytes 5.2 % (18.0-47.0); %Monocytes 7.6 % (0.0-10.0); %Neutrophils 86.1 % (40.0-75.0)
[2023-05-16] MEDS: Furosemide 40 MG (4 mL) VIAL SLOW IVP SCH (09:46)
[2023-05-16 10:08] LABS: ALT (SGPT) 54 U/L (8-55); AST (SGOT) 31 U/L (5-34); Albumin 3.4 g/dL (3.4-4.8); Alkaline Phosphatase 50 U/L (40-110); Anion Gap 15 mmol/L (10-20); BUN (Urea Nitrogen) 50 mg/dL (8.4-25.7); Bilirubin, Total 1.5 mg/dL (0.2-1.2); Calc. Creatinine Clearance 82 mL/min (70-130); Calcium 8.4 mg/dL (7.8-10.44); Carbon Dioxide 36 mmol/L (23-31); Chloride 97 mmol/L (98-107); Estimated GFR 88; Globulin 2.3 g/dL (2.4-3.5); Glucose 84 mg/dL (83-110); Protein, Total 5.7 g/dL (5.8-8.1); Sodium 143 mmol/L (136-145)
[2023-05-17 06:52] VITALS: BMI 25.1
[2023-05-17 09:34] LABS: #Monocytes 1.2 10x3/uL (0.0-1.1); #Neutrophils 15.8 10x3/uL (1.5-8.4); %Basophils 0.1 % (0.0-2.0); %Eosinophils 0.1 % (0.0-6.0); %Lymphocytes 4.2 % (18.0-47.0); %Monocytes 6.5 % (0.0-10.0); %Neutrophils 88.5 % (40.0-75.0); Hematocrit 34.7 % (38.8-50.0); Hemoglobin 10.7 g/dL (13.5-17.5); Mean Corpuscular HGB CONC 30.8 g/dL (32.0-36.0); Mean Corpuscular Hemoglobin 29.8 pg (27.0-33.0); Mean Corpuscular Volume 96.7 fl (81.2-95.1); Mean Platelet Volume 10.8 fl (7.4-10.4); Platelet Count 130 10x3/uL (150-450); RBC Distribution Width 15.5 % (11.5-14.5); Red Blood Cell (RBC) Count 3.59 10x6/uL (4.32-5.72); White Blood Cell (WBC) Count 17.9 10x3/uL (3.5-10.5)
[2023-05-17 09:51] LABS: ALT (SGPT) 52 U/L (8-55); AST (SGOT) 28 U/L (5-34); Albumin 3.6 g/dL (3.4-4.8); Alkaline Phosphatase 54 U/L (40-110); Anion Gap 17 mmol/L (10-20); BUN (Urea Nitrogen) 55 mg/dL (8.4-25.7); Bilirubin, Total 1.9 mg/dL (0.2-1.2); Calc. Creatinine Clearance 78 mL/min (70-130); Calcium 8.8 mg/dL (7.8-10.44); Carbon Dioxide 35 mmol/L (23-31); Chloride 96 mmol/L (98-107); Estimated GFR 86; Globulin 2.4 g/dL (2.4-3.5); Glucose 102 mg/dL (83-110); Potassium 4.6 mmol/L (3.5-5.1); Sodium 143 mmol/L (136-145)
[2023-05-18] MEDS: Furosemide 40 MG (4 mL) VIAL SLOW IVP SCH (13:53)
[2023-05-19] MEDS: Furosemide 40 MG (4 mL) VIAL SLOW IVP SCH (06:24)
[2023-05-19 12:58] VITALS: BP 119/65; TEMP 97.6
[2023-05-20] MEDS ORDERED: Furosemide 40 MG TAB PO SCH (07:30)
== END 2023-05-19 15:38 | disposition home or self-care (01) | DRG 189 ==
LOC: CSHERS 15:23 → CSHIMCU 19:08 → CSHTELE 05-11 18:07
PROVIDERS: ADMIT Internal Medicine; ATTEND Family Medicine
PROC: 4A033R1 Measurement of Arterial Saturation, Peripheral, Percutaneous Approach (ICD-10-PCS; principal; 2023-05-15)
DX: J96.21 Acute and chronic respiratory failure with hypoxia (principal); I21.A1 Myocardial infarction type 2; I50.33 Acute on chronic diastolic (congestive) heart failure; J44.1 Chronic obstructive pulmonary disease with (acute) exacerbation; I48.92 Unspecified atrial flutter; I11.0 Hypertensive heart disease with heart failure; J96.22 Acute and chronic respiratory failure with hypercapnia; Z11.52 Encounter for screening for COVID-19; N40.0 Benign prostatic hyperplasia without lower urinary tract symptoms; Z79.899 Other long term (current) drug therapy; G47.33 Obstructive sleep apnea (adult) (pediatric); Z90.89 Acquired absence of other organs; Z90.49 Acquired absence of other specified parts of digestive tract; Z98.49 Cataract extraction status, unspecified eye; E78.2 Mixed hyperlipidemia; I25.10 Atherosclerotic heart disease of native coronary artery without angina pectoris; M19.90 Unspecified osteoarthritis, unspecified site; Z82.49 Family history of ischemic heart disease and other diseases of the circulatory system; Z87.891 Personal history of nicotine dependence; Z88.0 Allergy status to penicillin; I70.218 Atherosclerosis of native arteries of extremities with intermittent claudication, other extremity; E87.70 Fluid overload, unspecified; I27.20 Pulmonary hypertension, unspecified; I48.0 Paroxysmal atrial fibrillation; D69.6 Thrombocytopenia, unspecified; E87.5 Hyperkalemia; Z66 Do not resuscitate
CPT/HCPCS: 36415; 36416; 36600; 71045; 80048; 80053; 80076; 82805; 83735; 83880; 84484; 85025; 85610; 85730; 93005; 93010; 93306; 94640; 94660; 94760; 94762; 96374; J0456; J0696; J1650; J1940; J2920; J2930; J3475; J3490; J7050; J7512; J7611; J7620; J7626